=== PATIENT | female | born 1965 | race Two or more races ===

== ENCOUNTER 2018-09-21 12:07 | Emergency (ER) | payer MEDICAID ==
[~2018-09-21] VITALS: Ht 157.5 cm; Wt 55.3 kg
--- NOTE | 2018-09-21 12:14 | NUR ---
DR GARCIA AT BEDSIDE
--- NOTE | 2018-09-21 12:14 | NUR ---
PT FLAGGED DOWN A PASSING EMS RIG AT A BUS STOP SAYING SHE'S NOT FEELING WELL, "MY INSIDE IS EATING ME UP", TO ER BED 15, HOOKED TO [facility], AWAITING MD Z[facility]
--- NOTE | 2018-09-21 12:18 | NUR ---
PT NOT ABLE TO PROVIDE URINE SAMPLE AT THIS TIME, PROVIDED W PERT
[2018-09-21 12:27] LABS: BASOPHILS % (AUTO) 0.6 % (0.0-2.0); EOSINOPHILS % (AUTO) 1.6 % (0.0-6.0); HEMATOCRIT 40 % (33-45); HEMOGLOBIN 13.3 g/dL (11.5-14.8); LYMPHOCYTES # (AUTO) 1.2 /CMM (0.8-4.8); LYMPHOCYTES % (AUTO) 29.4 % (20.0-44.0); MEAN CORPUSCULAR HGB CONC 34 g/dl (31.0-36.0); MEAN CORPUSCULAR VOLUME 91 fL (82-100); MONOCYTES # (AUTO) 0.5 /CMM (0.1-1.30); MONOCYTES % (AUTO) 11.9 % (2.0-12.0); NEUTROPHILS # (AUTO) 2.2 /CMM (1.8-8.9); NEUTROPHILS % (AUTO) 56.5 % (43.0-81.0); PLATELET COUNT (AUTO) 244 /CMM (150-450); RED BLOOD CELL COUNT(AUTO) 4.35 MIL/uL (4.0-5.2)
[2018-09-21 12:38] LABS: CARBON DIOXIDE 27 mmol/L (21-32); CHLORIDE 106 mmol/L (98-107); CREATININE 0.9 mg/dL (0.6-1.3); GLUCOSE 127 mg/dL (74-106); POTASSIUM 3.5 mmol/L (3.5-5.1); SODIUM SERUM 143 mmol/L (136-145); UREA NITROGEN, BLOOD 15 mg/dL (7-18)
[2018-09-21 12:44] LABS: ALANINE AMINOTRANSFERASE 60 U/L (12-78); ALBUMIN 3.1 g/dL (3.4-5.0); ALCOHOL, BLOOD < 3 mg/dL (0-0); ALKALINE PHOSPHATASE 94 U/L (46-116); ASPARTATE AMINOTRANSFERASE 67 U/L (15-37); BILIRUBIN,DIRECT 0.2 mg/dL (0.0-0.2); BILIRUBIN,TOTAL 0.4 mg/dL (0.2-1.0); TOTAL PROTEIN, SERUM 7.3 g/dL (6.4-8.2)
[2018-09-21 12:47] LABS: ACETAMINOPHEN < 2 ug/ml (10-30); SALICYLATE 1.6 mg/dL (2.8-20.0)
--- NOTE | 2018-09-21 12:55 | NUR ---
URINE SAMPLE SENT TO LAB
[2018-09-21 13:01] LABS: APPEARANCE,URINE CLEAR (CLEAR); BILIRUBIN,URINE 1+ (NEGATIVE); BLOOD, URINE NEGATIVE Ery/uL (NEGATIVE); COLOR,URINE YELLOW (YELLOW); KETONES,URINE NEGATIVE (NEGATIVE); LEUKOCYTE ESTERASE ,URINE NEGATIVE (NEGATIVE); NITRITE, URINE NEGATIVE (NEGATIVE); PROTEIN,URINE NEGATIVE (NEGATIVE); UGLUCOSE NEGATIVE (NEGATIVE)
[2018-09-21 13:22] LABS: RBC,URINE NONE SEEN /HPF (0-2); WBC,URINE 0-2 /HPF (0-3)
[2018-09-21 13:23] LABS: BACTERIA,URINE Rare /HPF (None Seen); SQUAMOUS EPITHELIAL CELL,UR Few /HPF (None Seen)
--- NOTE | 2018-09-21 14:01 | NUR ---
PT IN BED COMFORTABLY ASLEEP, VSS, HOOKED TO MONITOR, WILL CONTINUE TO MONITOR
--- NOTE | 2018-09-21 16:38 | NUR ---
PROVIDED W MEAL TRAY, PT TOLERATING PO WELL
--- NOTE | 2018-09-21 18:13 | NUR ---
PT IN BED COMFORTABLY ASLEEP, HOOKED TO MONITOR, VSS.
--- NOTE | 2018-09-21 19:37 | NUR ---
Patient given written and verbal discharge instructions. Patient verbalizes understanding of instructions. Patient is ambulatory with steady gait, wearing jacket, pajamas and a pair of shoes. Provided with sandwich and water. Refuses offer of correction placement. Signed Homeless waiiver form. Patient given list of available shelters in surrounding area. Assisted to waiting area. Provided with tap card.
[2018-09-21 19:41] VITALS: BP 118/74
== END 2018-09-21 19:44 | disposition home or self-care (01) ==
LOC: ER 12:09
DX: F29 Unspecified psychosis not due to a substance or known physiological condition (principal); F20.9 Schizophrenia, unspecified; R45.6 Violent behavior; Z60.2 Problems related to living alone
CPT/HCPCS: 36415; 80048; 80076; 80305; 80307; 80329; 81001; 85025; 99284; A4606; G0480; 81000-TC